=== PATIENT | male | born 1990 | race African-American/Black ===

== ENCOUNTER 2022-04-06 18:54 | Emergency (ER) | payer SELFPAY ==
[~2022-04-06] VITALS: Ht 175.3 cm; Wt 75.0 kg
[2022-04-06 19:14] VITALS: TEMP 98.2
[2022-04-06 19:49] VITALS: BP 133/90; PULSE 93
== END 2022-04-06 19:50 | disposition home or self-care (01) ==
LOC: COL.ER 18:54
DX: S61.012A Laceration without foreign body of left thumb without damage to nail, initial encounter (principal); F17.210 Nicotine dependence, cigarettes, uncomplicated; Z28.310 Unvaccinated for COVID-19; W26.0XXA Contact with knife, initial encounter